=== PATIENT | female | born 1980 | race Caucasian/White ===

== ENCOUNTER 2018-12-19 16:18 | Emergency (ER) | payer MEDICAID ==
[2018-12-19] MEDS ORDERED: ACETAMINOPHEN 325 MG TABLET PO ONE (16:39)
--- NOTE | 2018-12-19 16:49 | RADIOLOGY REPORT (SQ) ---
EXAM DESCRIPTION: ELBOW RIGHT AP/LAT COMPLETED DATE/TIME: 12/19/2018 4:38 pm REASON FOR STUDY: right elbow/forearm bone tenderness after injury COMPARISON: None. NUMBER OF VIEWS: Two views. TECHNIQUE: AP and lateral radiographic images acquired of the right elbow. LIMITATIONS: None. FINDINGS: MINERALIZATION: Normal. BONES: No acute fracture or dislocation. No worrisome bone lesions. JOINT: No effusion. SOFT TISSUES: No soft tissue swelling. No foreign body. OTHER: No other significant finding. IMPRESSION: No fracture or dislocation of the right elbow. No elbow joint effusion to suggest radio graphically occult fracture of the radial head or neck. TECHNICAL DOCUMENTATION: JOB ID: [id number] [employer]- All Rights Reserved Reading location - IP/workstation name: [email or web address]
--- NOTE | 2018-12-19 17:08 | ER Document Report ---
ED Extremity Problem, Upper - General Chief Complaint: Arm Injury Stated Complaint: RIGHT ARM INJURY Time Seen by Provider: 12/19/18 16:32 Mode of Arrival: Ambulatory Information source: Patient Notes: 38-year-old female presented to ED for complaint of pain to the elbow and lower arm on the right side. She states she was in the [employer] and she ran into store in the [employer] cart had a piece of metal that stuck out and hit her in the arm scratching her arm and injuring her arm and elbow. She states it happened just before coming into the emergency room. Patient is alert oriented respirations regular and unlabored she does have a very superficial scratch just below the elbow with pain is swelling to the arm and elbow. TRAVEL OUTSIDE OF THE [place] IN LAST 30 DAYS: No - HPI Patient complains to provider of: Injury, Pain, Swelling, Right, Elbow, Forearm, Other - Very superficial scratch to the lower arm just below the elbow right side Onset: Just prior to arrival Recent injury: Yes Where: Public place Quality of pain: Achy, Burning, Sharp Severity of pain: Moderate, Still present Pain Level: 4 Context: Other - Ran into the shopping cart rack scratching her arm and causing a contusion Associated symptoms: None Exacerbated by: Movement Relieved by: Rest, Positioning Similar symptoms previously: No Recently seen / treated by doctor: No - Related Data Allergies/Adverse Reactions: tramadol Allergy (Verified 03/23/16 18:07) bee stings Allergy (Uncoded 03/23/16 18:07) Past Medical History - General Information source: Patient - Social History Smoking Status: Never Smoker Frequency of alcohol use: None Drug Abuse: None Occupation: [employer] Lives with: Family Family History: Reviewed & Not Pertinent, DM Patient has suicidal ideation: No Patient has homicidal ideation: No - Medical History Medical History: Other - GPA or "Mame's granulocytosis" - Past Medical History Cardiac Medical History: Reports: None Pulmonary Medical History: Reports: Hx Asthma EENT Medical History: Reports: None Neurological Medical History: Reports: Hx Migraine Endocrine Medical History: Reports: Hx Hypothyroidism Renal/ Medical History: Reports: None Malignancy Medical History: Reports: None GI Medical History: Reports: None Musculoskeletal Medical History: Reports None Skin Medical History: Reports None Psychiatric Medical History: Reports: None Traumatic Medical History: Reports: None Infectious Medical History: Reports: None Past Surgical History: Reports: Hx Cholecystectomy, Hx Thyroid Surgery, Hx Tubal Ligation, Other - Trach, cut vocal cords - Immunizations Immunizations up to date: Yes Hx Diphtheria, Pertussis, Tetanus Vaccination: Yes Review of Systems - Review of Systems Constitutional: No symptoms reported EENT: No symptoms reported Cardiovascular: No symptoms reported Respiratory: No symptoms reported Gastrointestinal: No symptoms reported Genitourinary: No symptoms reported Female Genitourinary: No symptoms reported Musculoskeletal: Other - Contusion right forearm Skin: Other - Superficial laceration right forearm Hematologic/Lymphatic: No symptoms reported Neurological/Psychological: No symptoms reported -: Yes All other systems reviewed and negative Physical Exam - Vital signs Vitals: Temp Pulse Resp BP Pulse Ox 98.4 F 86 18 136/79 H 99 12/19/18 16:24 12/19/18 16:24 12/19/18 16:24 12/19/18 16:24 12/19/18 16:24 Interpretation: Normal - General General appearance: Appears well, Alert - HEENT Head: Normocephalic, Atraumatic Eyes: Normal Pupils: PERRL - Respiratory Respiratory status: No respiratory distress Chest status: Nontender Breath sounds: Normal Chest palpation: Normal - Cardiovascular Rhythm: Regular Heart sounds: Normal auscultation Murmur: No - Abdominal Inspection: Normal Distension: No distension Bowel sounds: Normal Tenderness: Nontender Organomegaly: No organomegaly - Back Back: Normal, Nontender - Extremities General upper extremity: Normal ROM, Normal temperature General lower extremity: Normal inspection, Nontender, Normal color, Normal ROM, Normal temperature, Normal weight bearing. No: Darrel's sign Elbow: Tender, Ecchymosis. No: Joint effusion, Limited ROM Forearm: Tender, Ecchymosis, Laceration - Very superficial - Neurological Neuro grossly intact: Yes Cognition: Normal Orientation: AAOx4 Lili Coma Scale Eye Opening: Spontaneous Frost Coma Scale Verbal: Oriented Frost Coma Scale Motor: Obeys Commands Frost Coma Scale Total: 15 Speech: Normal Motor strength normal: LUE, RUE, LLE, RLE Sensory: Normal - Psychological Associated symptoms: Normal affect, Normal mood - Skin Skin Temperature: Warm Skin Moisture: Dry Skin Color: Normal Course - Re-evaluation Re-evalutation: 12/19/18 17:40 X-ray negative for any acute fractures or bony abnormalities. Wounds were cleaned with soap and water bacitracin applied Telfa and then a sling. Patient was given instructions for elbow exercises and to follow-up with primary care and orthopedics. She was able to verbalize understanding and agreement with treatment plan. Patient's tetanus was not up-to-date so she was given a tetanus. - Vital Signs Vital signs: Temp Pulse Resp BP Pulse Ox 98.4 F 86 18 136/79 H 99 12/19/18 16:24 12/19/18 16:24 12/19/18 16:24 12/19/18 16:24 12/19/18 16:24 - Diagnostic Test Radiology reviewed: Image reviewed, Reports reviewed Procedures - Immobilization Right Elbow Time completed: 17:43 Pre-Proc Neuro Vasc Exam: Normal Immobilizer type: Sling Performed by: PCT Post-Proc Neuro Vasc Exam: Normal Alignment checked and good: Yes Discharge - Discharge Clinical Impression: Contusion of right lower arm Qualifiers: Encounter type: initial encounter Qualified Code(s): S50.11XA - Contusion of right forearm, initial encounter Abrasion of right arm Qualifiers: Encounter type: initial encounter Qualified Code(s): S40.811A - Abrasion of right upper arm, initial encounter Condition: Stable Disposition: HOME, SELF-CARE Instructions: Family Physicians / Practices, Forearm Exercise Program ([facility]) Additional Instructions: CONTUSION: Your injury has resulted in a contusion -- a crushing of the deep tissues. No injury to important structures was detected during the physician's exam. Contusions vary in the amount of pain they cause, and in the length of time required for healing. Typically, the area will become bruised, and will remain painful to touch for two or three weeks. However, most patients are back to working and playing within a few days. After the initial period of rest and cold-packs, your symptoms (together with the doctor's recommendations) will determine how rapidly you can get back to full activity. Usually this means "do what feels okay, but don't do things that hurt." If re-examination was recommended, it's important to follow up as instructed. Call the doctor or return any time if pain increases, if swelling becomes severe, if you develop numbness or weakness in an injured extremity, or if any other alarming symptoms occur. NON-SUTURED LACERATION: Your laceration did not require suturing. Some lacerations cannot be sutured because of increased infection risk, while others simply don't need stitches because they are shallow or very short. Your injury should be protected while it heals. Usually complete healing takes 10 to 14 days. Keep the dressing clean and dry, and change it every day. If you notice increasing pain, redness, swelling, drainage, or tender lumps in the armpit or groin above the injury, infection may be present. You should call the doctor at once. SOAP CLEANSING: Gently wash the wound daily using a mild soap (like Ivory, Phisoderm, Neutrogena). Use warm water, rubbing gently until all debris, ooze, and crusting have been washed from the wound. Allow to dry briefly (about 10 minutes) after cleaning. Repeat this cleansing at least three times a day for the first two days and then once or twice a day. ANTIBIOTIC OINTMENT PROTECTION: Your wounds are such that dressing them is not practical or optional. After cleansing, you should apply a thin coating of antibiotic ointment (Bacitracin, not Neosporin) to the wounds at least three times daily. This lessens infection risk, and may decrease the amount of scarring. Use a q-tip or dull butter knife, not your finger, to apply this ointment. Any debris or ooze which builds up in the ointment should be gently rubbed off with a sterile gauze pad. Harder crusting may need to be gently scrubbed off with a clean wash cloth with soap and warm water, perhaps applying a warm, wet wash cloth to the wound for ten minutes first. Development of redness, severe itching, or blistering may mean allergy to the ointment. See the doctor. TETANUS IMMUNIZATION GIVEN: You have been given an immunization against tetanus. Please record this in your records. In general, a booster is needed only once every 10 years. The tetanus shot protects against tetanus or "lockjaw," which is a complication of certain wound infections (the tetanus shot cannot protect against the actual infection). The immunization site may become warm and red due to local reaction. If this occurs, apply warm compresses and take aspirin or ibuprofen to reduce inflammation and discomfort. Return for evaluation if the reaction becomes severe. Ibuprofen Ibuprofen is an excellent, safe drug for pain control. In addition, it has potent antiinflammatory effects which are beneficial, especially in the treatment of injuries, arthritis, or tendonitis. It's best to take ibuprofen with food. Persons with ulcer disease or allergy to aspirin should notify their physician of this before taking ibuprofen. Take the medication exactly as prescribed. Don't take additional doses unless instructed to do so by your doctor. If you develop wheezing, shortness of breath, hives, faintness, stomach pain, vomiting, or dark black stools, return for re-evaluation at once. USE OF TYLENOL (ACETAMINOPHEN): Acetaminophen may be taken for pain relief or fever control. It's much safer than aspirin, offering a wider range of "safe" dosages. It is safe during . Some brand names are Tylenol, Panadol, Datril, Anacin 3, Tempra, and Liquiprin. Acetaminophen can be repeated every four hours. The following are m aximum recommended dosages: WEIGHT Dose Drops Elixir Chewable(80mg) (LBS.) drprs=droppers tsp=teaspoon 6 40 mg 0.4 ml (1/2) 6-11 80 mg 0.8 ml (full) tsp 1 tab 12-16 120 mg 1 1/2 drprs 3/4 tsp 1 1/2 tabs 17-23 160 mg 2 drprs 1 tsp 2 tabs 24-30 240 mg 3 drprs 1 1/2 tsp 3 tabs 30-35 320 mg 2 tsp 4 tabs 36-41 360 mg 2 1/4 tsp 4 1/2 tabs 42-47 400 mg 2 1/2 tsp 5 tabs 48-53 480 mg 3 tsp 6 tabs 54-59 520 mg 3 1/4 tsp 6 1/2 tabs 60-64 560 mg 3 1/2 tsp 7 tabs 65-70 600 mg 3 3/4 tsp 7 1/2 tabs 71-76 640 mg 4 tsp 8 tabs 77-82 720 mg 4 1/2 tsp 9 tabs 83-88 800 mg 5 tsp 10 tabs >89 pounds or adults 650 mg to 900 mg Acetaminophen can be repeated every four hours. Maximum dose not to exceed 4000 mg a day. These maximum recommended dosages are slightly higher than the dosages written on the product container, but these dosages are very safe and below the toxic dosage for acetaminophen. FOLLOW-UP CARE: If you have been referred to a physician for follow-up care, call the physicians office for an appointment as you were instructed or within the next two days. If you experience worsening or a significant change in your symptoms, notify the physician immediately or return to the Emergency Department at any time for re-evaluation. Forms: Elevated Blood Pressure, Return to Work
[2018-12-19] MEDS ORDERED: DIPH/PERTUSS(ACELL)/TETANUS VAC/PF 0.5 ML SYR (>=10YO) IM ONE (17:35)
[2018-12-19 17:43] VITALS: BP 123/83
== END 2018-12-19 17:57 | disposition home or self-care (01) ==
LOC: ER 16:18
DX: S51.811A Laceration without foreign body of right forearm, initial encounter (principal); S40.811A Abrasion of right upper arm, initial encounter; S50.00XA Contusion of unspecified elbow, initial encounter; M25.521 Pain in right elbow; M79.631 Pain in right forearm; Z23 Encounter for immunization; W22.8XXA Striking against or struck by other objects, initial encounter; Y92.512 Supermarket, store or market as the place of occurrence of the external cause; J45.909 Unspecified asthma, uncomplicated; Z88.5 Allergy status to narcotic agent; Z91.030 Bee allergy status
CPT/HCPCS: 99283; 90471; 73070; 90715; J3490